=== PATIENT | male | born 1950 | race Caucasian/White ===

== ENCOUNTER → 2020-10-31 | Outpatient (CLI) | payer OTHER ==
[~2020-10-31] MED LIST: ASPIRIN325 PO; BIOTIN800 MCG PO; CARVEDILOL12.5 MG PO; FLEXERIL PO; GARLIC1000 MG PO; IMIPRAMINE HCL50 M2 PO; MELATONIN10 M3 PO; MELOXICAM15 MG PO; MOVE FREE JOIN1 EACH PO; PRILOSEC OTC20 MG PO; ROSUVASTATIN CAL5 MG PO; VALERIAN ROOT100 MG PO; VITAMIN B COMP1 EACH PO
[2020-10-31 11:45] LABS: HEMATOCRIT 40.8 % (42.0-52.0); HEMOGLOBIN 13.8 gm/dL (14.0-18.0); MCH 32.3 pg (26.0-34.0); MCHC 33.8 g/dL (28.0-37.0); MCV 95.8 fL (80.0-100.0); RBC 4.26 mil/uL (4.50-6.00); RDW 13.7 % (10.5-14.5); WBC 5.8 thou/uL (4.0-11.0)
[2020-10-31 11:47] LABS: URINE BILIRUBIN NEGATIVE (Negative); URINE BLOOD NEGATIVE (Negative); URINE CLARITY CLEAR; URINE COLOR YELLOW; URINE GLUCOSE-RANDOM* NEGATIVE (Negative); URINE KETONES TRACE (Negative); URINE LEUKOCYTES-REFLEX NEGATIVE (Negative); URINE NITRITE-REFLEX NEGATIVE (Negative); URINE PROTEIN (DIPSTICK) NEGATIVE (Negative); URINE SPECIFIC GRAVITY 1.015 (1.005-1.035); URINE UROBILINOGEN 0.2 E.U./dl (0.2-1.0)
[2020-10-31 11:55] LABS: ALBUMIN 3.8 g/dL (3.4-5.0); CALCIUM 8.8 mg/dL (8.5-10.1); CREATININE 1.3 mg/dL (0.7-1.3); POTASSIUM 4.4 mmol/L (3.5-5.1)
[2020-10-31 11:57] LABS: INR 0.96; PROTIME 10.5 Seconds (10.5-12.1)
--- NOTE | 2020-10-31 13:09 | EKG ---
[place] [address] [facility] [employer] [address] ELECTROCARDIOGRAM REPORT Name: JORDEN COOL [facility]: [id number] Admission: 10/31/20 Attend Phys: Adriel Pickering MD Discharge: Date of : 50 Report #: [id number] [facility] Test Date: 2020-10-31 Test Time: 11:16:16 Pat Name: JORDEN COOL Department: Room: Gender: Bill Checker: YESI : 1950 Requested By: Adriel Pickering Order Number: [id number] MD: Landon Truong Measurements Intervals [place] Rate: 92 P: 55 AK: 155 QRS: -65 QRSD: 98 T: 40 QT: 394 QTc: 488 Interpretive Statements Sinus rhythm Left anterior fascicular block RSR' in V1 or V2, right VCD or RVH Borderline prolonged QT interval No previous ECG available for comparison Electronically Signed On 10-31-2020 13:09:04 CDT by Landon Truong [email or web address] <ELECTRONICALLY SIGNED> By: Landon Truong MD 10/31/20 1309 15 15 Landon Truong MD /ANGEL
== END ==
LOC: PAC 09:51
PROVIDERS: Student in an Organized Health Care Education/Training Program; ATTEND Orthopaedic Surgery
DX: Z01.818 Encounter for other preprocedural examination (principal); Z20.822 Contact with and (suspected) exposure to COVID-19

== ENCOUNTER 2020-11-06 07:14 | Day surgery (SDC) | payer OTHER ==
[~2020-11-06] VITALS: Ht 172.7 cm; Wt 83.0 kg
[2020-11-06 09:16] VITALS: BP 131/76
[2020-11-06 13:10] VITALS: BP 157/94
--- NOTE | 2020-11-06 13:49 | NUR ---
Pt transferred from PACU. Pain controlled. Dressing c/d/i. ESTEFANY hose and SCDs in place. Polar care in place. IVF infusing. Pt tolerating PO. Family at bedside. Physical therapy will work with pt and evaluate. Admission completed. Fall precautions in place. Will continue to monitor.
[2020-11-06 14:17] VITALS: BP 157/94
[2020-11-06 14:37] VITALS: BP 157/94
--- NOTE | 2020-11-06 14:40 | NUR ---
ASSESSMENT: CM REVIEWED CHART AND SPOKE WITH PT AND SPOUSE. PT LIVES IN A MOBILE HOME WITH HIS . PT REPORTS ABOUT 3 STEPS WITH BILATERAL HANDRAILS TO ENTER AND NO STEPS ONCE INSIDE. PT NORMALLY AMBULATES INDEPENDENTLY BUT DOES HAVE A VERY OLD CANE AT HOME. PT DENIES HAVING A WALKER. PHYSICAL THEARPY SAW PATIENT AND RECOMMENDING A WALKER FOR DISCHARGE. PT REPORTS NO PREFERENCE OF [employer]. CM NOTIFIED LIAS[facility] AT [employer] WHO IS BRINGING A WALKER TO PATIENTS ROOM. PT HAS OUTPATIENT THERAPY ARRANGED AT [facility]. PT WAS CLEARED BY PHYSICAL THERAPY TO DISCHARGE HOME TODAY. CASE CLOSED.
--- NOTE | 2020-11-09 09:47 | O ---
[facility] [place] [address] OPERATIVE REPORT Name: JORDEN COOL Room #: DEP [facility].#: [id number] Admission: 11/06/20 Attend Phys: Adriel Pickering MD Discharge: 11/06/20 Date of : 50 Report #: [id number] THIS REPORT FOR: cc: FAM - No family physician/PCP Physician not on staff Adriel Pickering MD ~ DOC #: [id number] Adriel Pickering MD DATE OF SERVICE: 11/06/2020 PREOPERATIVE DIAGNOSIS: Right knee osteoarthritis. POSTOPERATIVE DIAGNOSIS: Right knee osteoarthritis. PROCEDURE: Right total knee arthroplasty using Navio robotic assistance. SURGEON: Adriel Pickering MD. RESPIRATORY ASSISTANT: Zuleyma Ayala PA-C ANESTHESIA: LMA with adductor canal block. IMPLANTS: A [employer] size 6 Journey II BCS Oxinium femur, size 5 tibia, size 10 polyethylene and size 35 patella. Tourniquet time was 53 minutes. ESTIMATED BLOOD LOSS: 25 mL COMPLICATIONS: None. SPECIMENS: None. CONDITION UPON LEAVING THE OPERATING ROOM: Stable. INDICATIONS FOR PROCEDURE: The patient is a 70-year-old gentleman with severe right knee osteoarthritis. She had failed conservative measures for this and after discussion with him, he elected for right total knee arthroplasty. DESCRIPTION OF PROCEDURE: Risks, benefits, alternatives, complications were discussed in detail with the patient including but not limited to risk of anesthesia, risk of damage to nerves, arteries, blood vessels, risk for infection, bleeding, risk for continued knee pain and need for reoperation. Informed consent was obtained from the patient. Right knee was appropriately marked in the preoperative holding area. IV Ancef was given for preoperative antibiotics. He was brought to the operating room and placed in supine position [address] [address] OPERATIVE REPORT Name: TRAVONJORDEN Landy Room #: DEP [facility] Jaspreet.#: [id number] Admission: 11/06/20 Attend Phys: Adriel Pickering MD Discharge: 11/06/20 Date of : 50 Report #: [id number] on the operating table. LMA anesthesia was induced without complication. Tourniquet was placed on the right thigh. Right lower extremity was prepped and draped in normal sterile fashion. Timeout was performed properly identifying the patient and procedure as well as the instrumentation and implants. All in the operating room in agreement. Right lower extremity was exsanguinated and tourniquet inflated. Tourniquet time was 53 minutes. Standard midline approach to knee was made with 10 blade through the skin. Dissection was taken down sharply to the fascia and deep flaps were developed medially and laterally. Fresh 10 blade was used to make a medial parapatellar arthrotomy and the knee was inspected. There was severe medial compartment osteoarthritis with moderate lateral and patellofemoral compartment osteoarthritis. ACL and PCL were removed sharply. Reference pins were placed in the femur and the tibia. The knee was digitally mapped using the [place] robotic system. Intraoperative plan was made. We sized the size 6 femur, size 5 tibia and a 10 spacer. After acceptance of the intraoperative plan, the distal femoral cut was made with Navio bur. Distal femoral cutting block was pinned in place and chamfer cuts were made. Attention was turned to the tibia. Remainder of the menisci removed with Bovie cautery. Tibial resection guide was pinned in place using Navio for placement and tibial resection was made. Flexion and extension gaps were checked and found to have good balance in flexion and extension both medially and laterally. Tibia was sized, found to be a size 5. A size 5 tibial trial was placed, pinned and punched. A size 6 femoral trial was placed and the box cut was made. This was then trialed with a size 10 polyethylene. Size 10 polyethylene demonstrated 1-2 mm of laxity medial and lateral throughout range of motion of the knee. A 9 mm of bone was resected from the posterior surface of the patella and a size 35 patellar trial button was placed, knee was taken through range of motion, found to be stable, found to have good patellar tracking. Trial components were removed. Bony ends were thoroughly irrigated with normal saline. The final size 5, tibia size 6 Journey II BCS Oxinium femur and a size 35 patella were cemented in place using standard cementation techniques. While the cement cured, a periarticular injection consisting of morphine, ropivacaine, epinephrine, Toradol was placed around the knee joint capsule. After the cement cured, tourniquet was deflated. Hemostasis was obtained with Bovie cautery. A final size 10 polyethylene was placed. A gram of vancomycin was placed deep in the joint. The fascia was closed with 0 Vicryl. Skin was closed with 2-0 Vicryl, 3-0 Monocryl. Dermabond and a HARRY dressing was applied. The patient tolerated this procedure well and went to recovery room under care of anesthesia postoperatively. Adriel Pickering MD [facility]/[address] [address] OPERATIVE REPORT Name: JORDEN COOL Room #: DEP [facility] Alonzo#: [id number] Admission: 11/06/20 Attend Phys: Adriel Pickering MD Discharge: 11/06/20 Date of : 50 Report #: [id number] <ELECTRONICALLY SIGNED> By: Adriel Pickering MD 11/09/20 0947 1323 1433 Adriel Pickering MD /nt
== END 2020-11-06 15:41 | disposition home or self-care (01) ==
LOC: OR → 4S 12:57 → OR 13:18
PROVIDERS: ATTEND Orthopaedic Surgery
DX: M17.11 Unilateral primary osteoarthritis, right knee (principal); M25.561 Pain in right knee; I10 Essential (primary) hypertension; E78.5 Hyperlipidemia, unspecified; K21.9 Gastro-esophageal reflux disease without esophagitis; Z98.890 Other specified postprocedural states; Z79.899 Other long term (current) drug therapy; Z79.82 Long term (current) use of aspirin
CPT/HCPCS: 10102; 50010; 50101; 50415; 50954; 51130; 51225; 51320; 52001; 52282; 53000; 53078; 53365; 54118; 56527; 56528; 57095; 57103; 57110; 57127; 57180; 62110; 62900; 64039; 70005